=== PATIENT | male | born 1980 | race Caucasian/White ===

== ENCOUNTER 2017-05-01 08:45 | Emergency (ER) | payer OTHER ==
[~2017-05-01] VITALS: Ht 182.9 cm; Wt 81.7 kg
[~2017-05-01 08:45] MED LIST: Betamethasone D15 G1 TOP; Prednisone20 MG PO
[2017-05-01] MEDS ORDERED: Triamcinolone A15 GM TOP (09:22)
[2017-05-01] MEDS ORDERED: Triamcinolone A15 G4 TOP (09:22)
== END 2017-05-01 09:45 | disposition home or self-care (01) ==
LOC: ER 08:45
DX: L30.9 Dermatitis, unspecified (principal); Z79.52 Long term (current) use of systemic steroids; Z79.899 Other long term (current) drug therapy; F17.210 Nicotine dependence, cigarettes, uncomplicated
CPT/HCPCS: 99282

== ENCOUNTER 2022-01-05 14:50 | Emergency (ER) | payer OTHER ==
[~2022-01-05] VITALS: Ht 182.9 cm; Wt 79.4 kg
[~2022-01-05 14:50] MED LIST changes: +Triamcinolone A15 G4 TOP; +Triamcinolone A15 GM TOP
== END 2022-01-05 17:46 | disposition home or self-care (01) ==
LOC: ER 14:50
DX: S62.304A Unspecified fracture of fourth metacarpal bone, right hand, initial encounter for closed fracture (principal); W22.09XA Striking against other stationary object, initial encounter; F17.210 Nicotine dependence, cigarettes, uncomplicated
CPT/HCPCS: 73120; A9270; J1885